=== PATIENT | female | born 1985 | race Native Hawaiian/Other Pacific Islander ===

== ENCOUNTER 2022-03-17 15:34 | Outpatient (CLI) | payer OTHER | END 2022-03-17 19:18 | disposition home or self-care (01) | LOC: RAD 15:34 | PROVIDERS: ATTEND Orthopaedic Surgery | DX: M25.562 Pain in left knee (principal) ==

== ENCOUNTER 2022-03-29 13:47 | Outpatient (CLI) | payer OTHER | END 2022-03-29 19:34 | disposition home or self-care (01) | LOC: MRI 13:47 | PROVIDERS: ATTEND Physician Assistant | DX: S83.232A Complex tear of medial meniscus, current injury, left knee, initial encounter (principal); Y92.89 Other specified places as the place of occurrence of the external cause ==